=== PATIENT | female | born 1945 | race Caucasian/White ===

== ENCOUNTER 2024-09-21 09:13 | Day surgery (SDC) | payer MEDICARE, OTHER ==
[2024-09-21] MEDS: Cefuroxime 10 MG/ML SYRINGE EYERT SCH (09:43)
[2024-09-21] MEDS: Lidocaine 1% PF 2 ML SDV INJECT SCH (09:43)
[2024-09-21] MEDS: Pilocarpine 4% Ophth Soln 15 ML Bot EYERT SCH (09:43)
[2024-09-21] MEDS: Phenylephrine 2.5% Ophth Soln 2 ML Bot EYERT SCH (09:43)
[2024-09-21] MEDS: Tetracaine HCl/PF 0.5% 4 ML Bottle EYEBOTH SCH (09:43)
[2024-09-21] MEDS: Polymyxin B/Trimethoprim 10 ML Bottle EYERT SCH (09:43)
[2024-09-21] MEDS: Brimonidine 0.2% Ophth Soln 5 ML Bottle EYERT SCH (09:43)
[2024-09-21] MEDS: Tropicamide 1% Ophth Soln 3 ML Bottle EYERT SCH (10:37)
== END 2024-09-21 12:10 ==
LOC: JD.SDS 09:13
PROVIDERS: ATTEND Ophthalmology
DX: H25.813 Combined forms of age-related cataract, bilateral (principal); H02.831 Dermatochalasis of right upper eyelid; H02.834 Dermatochalasis of left upper eyelid; H57.813 Brow ptosis, bilateral; H18.413 Arcus senilis, bilateral; H11.823 Conjunctivochalasis, bilateral; H16.103 Unspecified superficial keratitis, bilateral; H16.223 Keratoconjunctivitis sicca, not specified as Sjogren's, bilateral; I10 Essential (primary) hypertension; E78.2 Mixed hyperlipidemia; Z79.899 Other long term (current) drug therapy
CPT/HCPCS: 66984; J0697; J3490; V2632

== ENCOUNTER 2024-10-19 13:33 | Day surgery (SDC) | payer MEDICARE, OTHER ==
[2024-10-19] MEDS: Tetracaine HCl/PF 0.5% 4 ML Bottle EYEBOTH SCH (07:39)
[2024-10-19] MEDS: Cefuroxime 10 MG/ML SYRINGE EYELF SCH (07:39)
[2024-10-19] MEDS: Phenylephrine 2.5% Ophth Soln 2 ML Bot EYELF SCH (07:39)
[2024-10-19] MEDS: Lidocaine 1% PF 2 ML SDV INJECT SCH (07:39)
[2024-10-19] MEDS: Brimonidine 0.2% Ophth Soln 5 ML Bottle EYELF SCH (07:40)
[2024-10-19] MEDS: Polymyxin B/Trimethoprim 10 ML Bottle EYELF SCH (07:40)
[2024-10-19] MEDS: Pilocarpine 4% Ophth Soln 15 ML Bot EYELF SCH (07:40)
[2024-10-19] MEDS: Tropicamide 1% Ophth Soln 3 ML Bottle EYELF SCH (14:08)
== END 2024-10-19 15:48 ==
LOC: JD.SDS 13:33
PROVIDERS: ATTEND Ophthalmology
DX: H25.812 Combined forms of age-related cataract, left eye (principal); H52.31 Anisometropia; I10 Essential (primary) hypertension; E78.2 Mixed hyperlipidemia; Z79.899 Other long term (current) drug therapy
CPT/HCPCS: 66984; A9270; J0697; J3490